=== PATIENT | female | born 1935 | race Caucasian/White ===

== ENCOUNTER → 2016-08-25 | Outpatient (CLI) | payer MEDICARE, OTHER ==
[~2016-08-25] MED LIST: ACTOS15 MG PO; ALDACTONE25 MG PO; ARICEPT10 MG PO; CENTRUM SILVER1 TAB PO; COUMADIN ** IA3 MG PO; CPAP INH; GLUCOPHAGE XR500 M1 PO; IRON325 MG PO; K-TAB 10MEQ10 MEQ PO; KEFLEX250 MG PO; LASIX20 MG PO; LOPRESSOR100 MG PO; LOPRESSOR50 MG PO; MICARDIS80 MG PO; NAMENDA XR28 MG PO; NEURONTIN300 MG PO; NORCO 5-325 MG1 TAB PO; PLAVIX75 MG PO; PRILOSEC20 MG PO; SURFAK240 MG PO; TRICOR 160 MG160 MG PO; ULTRAM50 MG PO; ZOCOR20 MG PO; ZOLOFT50 MG PO
== END | disposition disaster alternative care site (69) ==
LOC: GRAD 10:38
DX: R10.9 Unspecified abdominal pain (principal)
CPT/HCPCS: A9537

== ENCOUNTER → 2016-09-27 | Outpatient (CLI) | payer MEDICARE, OTHER ==
[2016-09-27 11:26] LABS: ALBUMIN 3.5 gm/dL (3.5-5.0); ANION GAP 10.8 (10.0-19.0); CREATININE 1.5 mg/dL (0.5-1.1); POTASSIUM 4.8 mMol/L (3.7-5.1); TOTAL BILIRUBIN 0.3 mg/dL (0.0-1.5); TOTAL PROTEIN 6.7 g/dL (6.0-8.4)
== END | disposition disaster alternative care site (69) ==
LOC: LNHI 10:51
PROVIDERS: Internal Medicine Interventional Cardiology
DX: I10 Essential (primary) hypertension (principal); I25.10 Atherosclerotic heart disease of native coronary artery without angina pectoris

== ENCOUNTER → 2016-11-21 | Day surgery (SDC) | payer MEDICARE, OTHER ==
[~2016-11-21] VITALS: Ht 154.9 cm; Wt 64.0 kg
== END ==
LOC: GPOC 11-16 13:00 → GEND 08:06 → GPOC 08:30
PROC: 0DBB8ZX Excision of Ileum, Via Natural or Artificial Opening Endoscopic, Diagnostic (ICD-10-PCS; principal; 2016-11-21)
PROC: 0DBE8ZX Excision of Large Intestine, Via Natural or Artificial Opening Endoscopic, Diagnostic (ICD-10-PCS; 2016-11-21)
DX: K52.9 Noninfective gastroenteritis and colitis, unspecified (principal); I25.10 Atherosclerotic heart disease of native coronary artery without angina pectoris; E78.00 Pure hypercholesterolemia, unspecified; I10 Essential (primary) hypertension; K21.9 Gastro-esophageal reflux disease without esophagitis; E11.9 Type 2 diabetes mellitus without complications; M19.90 Unspecified osteoarthritis, unspecified site; Z85.038 Personal history of other malignant neoplasm of large intestine; Z98.890 Other specified postprocedural states; Z96.653 Presence of artificial knee joint, bilateral; Z98.41 Cataract extraction status, right eye; Z98.42 Cataract extraction status, left eye; Z95.5 Presence of coronary angioplasty implant and graft; Z79.899 Other long term (current) drug therapy
CPT/HCPCS: J2001; J7030